=== PATIENT | female | born 1970 | race Two or more races ===

== ENCOUNTER 2016-04-23 17:52 | Emergency (ER) | payer MEDICAID, OTHER ==
[~2016-04-23] VITALS: Ht 165.1 cm; Wt 83.9 kg
[2016-04-23] MEDS ORDERED: SODIUM CHLORIDE 0.9% 500 ML IV ONE (18:06)
[2016-04-23 18:48] LABS: Albumin 4.4 g/dL (3.4-5.0); BUN/Creatinine Ratio 11.4; Calcium 8.5 mg/dL (8.5-10.1)
[2016-04-23 18:50] VITALS: BP 156/83
[2016-04-23 18:51] LABS: Bilirubin, Total 0.5 mg/dL (0.2-1.0); Total Protein 8.7 g/dL (6.4-8.2)
[2016-04-23 18:54] LABS: Basophils # (auto) 0 uL; Basophils % (auto) 0.4 % (0.0-2.0); Eosinophils # (auto) 0.1 uL; Eosinophils % (auto) 1.9 % (0.0-7.0); Hematocrit 42.5 % (36.0-46.0); Hemoglobin 14.4 g/dL (12.2-16.2); Lymphocytes # (auto) 3.1 uL; Lymphocytes % (auto) 40.9 % (10.0-50.0); Mean Corpuscular Hemoglobin 28.8 pg (28.0-32.0); Mean Corpuscular Hgb Conc. 33.8 g/dL (32.0-36.0); Mean Corpuscular Volume 85.1 fL (80.0-100.0); Mean Platelet Volume 8.2 fL (7.4-10.4); Monocytes # (auto) 0.4 uL; Neutrophils # (auto) 3.9 uL; Neutrophils % (auto) 51.8 % (37.0-80.0); Platelet Count (auto) 262 10^3/uL (140-450); Red Cell Distribution Width 13.1 % (11.6-16.0); White Blood Cell 7.5 10^3/uL (4.4-10.8)
[2016-04-23] MEDS ORDERED: POTASSIUM CHL 20 Meq TABLET PO ONE (19:30)
== END 2016-04-23 20:08 | disposition home or self-care (01) ==
LOC: ER 17:57
DX: R53.1 Weakness (principal); F45.8 Other somatoform disorders; E87.6 Hypokalemia; R51 Headache
CPT/HCPCS: 36415; 70450; 71010; 80053; 83735; 84484; 84702; 85025; 93005; 94761; 96360; 99285; J7030

== ENCOUNTER 2019-11-21 14:12 | Inpatient (IN) | payer MEDICAID ==
[~2019-11-21] VITALS: Ht 165.1 cm; Wt 79.8 kg
[2019-11-21] MEDS ORDERED: SODIUM CHLORIDE 0.9% 1,000 ML IVB ONE (15:31)
[2019-11-21] MEDS ORDERED: ASCORBIC ACID 500 MG TAB PO ONE (15:45)
[2019-11-21] MEDS ORDERED: ZINC SULFATE 220mg CAP or TAB PO ONE (15:45)
[2019-11-21] MEDS ORDERED: AZITHROMYCIN 500MG/ 250ML 250 ML IV ONE (15:45)
[2019-11-21] MEDS ORDERED: DexAMETHasone 4 MG TAB PO ONE (15:45)
[2019-11-21 18:03] LABS: Basophils # (auto) 0 10 ^3/uL (0-0.2); Basophils % (auto) 0.4 % (0.0-2.0); Eosinophils # (auto) 0.1 10 ^3/uL (0-0.8); Eosinophils % (auto) 0.8 % (0.0-7.0); Hematocrit 41.9 % (36.0-46.0); Hemoglobin 14.2 g/dL (12.2-16.2); Lymphocytes % (auto) 24.6 % (10.0-50.0); Mean Corpuscular Hemoglobin 28.8 pg (28.0-32.0); Mean Corpuscular Volume 84.6 fL (80.0-100.0); Monocytes # (auto) 0.4 10 ^3/uL (0-1.3); Monocytes % (auto) 4.2 % (0.0-12.0); Neutrophils # (auto) 5.8 10 ^3/uL (1.6-8.6); Platelet Count (auto) 333 10^3/uL (140-450); Red Blood Cells 4.95 10^6/uL (4.0-5.20); Red Cell Distribution Width 12.8 % (11.8-14.3); White Blood Cell 8.3 10^3/uL (4.4-10.8)
[2019-11-21 18:30] LABS: Albumin 4.1 g/dL (3.4-5.0); BUN/Creatinine Ratio 9.6; Calcium 9.2 mg/dL (8.5-10.1); Magnesium 2.3 mg/dL (1.6-2.6); Potassium 3.7 mmol/L (3.5-5.1)
[2019-11-21 18:32] LABS: Bilirubin, Total 0.7 mg/dL (0.2-1.0); INR 1.06 (0.9-1.15); Partial Thromboplastin Time 24.8 sec (23.0-31.2); Total Protein 8.2 g/dL (6.4-8.2)
[2019-11-21] MEDS ORDERED: SODIUM CHLORIDE 0.9% 1,000 ML IV SCH (21:54)
[2019-11-21] MEDS ORDERED: ACETAMINOPHEN 500 MG TAB PO PRN (22:00)
[2019-11-21] MEDS ORDERED: HYDROcodone-ACET 5/325MG TAB PO PRN (22:00)
[2019-11-21] MEDS ORDERED: LORazepam 0.5 MG TAB PO PRN (22:00)
[2019-11-21] MEDS ORDERED: MORPHINE SULF INJ 2 MG/ML SYRINGE 1ML IV PRN (22:00)
[2019-11-21] MEDS ORDERED: TEMAZEPAM 15 MG CAP PO PRN (22:00)
[2019-11-21] MEDS: ALBUTEROL SULF HFA 90MCG INH 200DOSE IN SCH (22:00)
[2019-11-21] MEDS ORDERED: ONDANSETRON HCL 4 MG/2 ML VIAL IV PRN (22:00)
[2019-11-21] MEDS ORDERED: DOCUSATE SOD 100 MG CAP PO PRN (22:00)
[2019-11-21] MEDS: DOXYCYCLINE 100 MG TAB/CAP PO SCH (22:52)
[2019-11-21 23:21] LABS: Urine Bacteria FEW /hpf (None Seen); Urine Blood Negative /uL (Negative); Urine Specific Gravity 1.009 (1.001-1.035); Urine WBC 11 /hpf (0 - 5)
[2019-11-22] VITALS (9 sets, daily range): BP systolic 128–149; BP diastolic 73–85
[2019-11-22 05:43] LABS: Basophils # (auto) 0 10 ^3/uL (0-0.2); Eosinophils # (auto) 0 10 ^3/uL (0-0.8); Hematocrit 38.9 % (36.0-46.0); Hemoglobin 13.1 g/dL (12.2-16.2); Lymphocytes # (auto) 0.9 10 ^3/uL (0.4-5.4); Mean Corpuscular Hemoglobin 28.4 pg (28.0-32.0); Mean Corpuscular Hgb Conc. 33.7 g/dL (32.0-36.0); Mean Corpuscular Volume 84.3 fL (80.0-100.0); Monocytes # (auto) 0.1 10 ^3/uL (0-1.3); Monocytes % (auto) 0.8 % (0.0-12.0); Neutrophils # (auto) 5.3 10 ^3/uL (1.6-8.6); Neutrophils % (auto) 84.2 % (37.0-80.0); Platelet Count (auto) 308 10^3/uL (140-450); Red Blood Cells 4.61 10^6/uL (4.0-5.20); Red Cell Distribution Width 12.9 % (11.8-14.3); White Blood Cell 6.3 10^3/uL (4.4-10.8)
[2019-11-22] MEDS: ALBUTEROL SULF HFA 90MCG INH 200DOSE IN SCH ×2 (06:00→06:27)
[2019-11-22 06:02] LABS: Potassium 3.7 mmol/L (3.5-5.1)
[2019-11-22 06:11] LABS: Albumin 3.6 g/dL (3.4-5.0); BUN/Creatinine Ratio 11.5; Bilirubin, Total 0.6 mg/dL (0.2-1.0); Calcium 8.6 mg/dL (8.5-10.1); Total Protein 7.5 g/dL (6.4-8.2)
[2019-11-22 06:40] LABS: Cholesterol 186 mg/dL (< 200); HDL Cholesterol 30 mg/dL (40-59); LDL Cholesterol 129 mg/dL (< 100); Triglycerides 144 mg/dL (< 150)
[2019-11-22] MEDS: ZINC SULFATE 220mg CAP or TAB PO SCH (08:48)
[2019-11-22] MEDS: ASCORBIC ACID 1,000 MG TAB PO SCH (08:48)
[2019-11-22] MEDS: DOXYCYCLINE 100 MG TAB/CAP PO SCH ×2 (09:00→20:50)
[2019-11-22] MEDS: ENOXAPARIN SOD 40 MG/0.4 ML SYRINGE SC SCH (09:01)
[2019-11-22] MEDS ORDERED: DexAMETHasone SOD PHOS 10MG/1ML VIAL INJ IV ONE (14:16)
[2019-11-22] MEDS ORDERED: POTASSIUM CHL 10 Meq TABLET PO ONE (14:30)
[2019-11-22] MEDS ORDERED: FUROSEMIDE 20 MG TAB PO ONE (14:30)
[2019-11-22 16:06] LABS: CRP High Sensitivity 0.14 mg/dL (< 0.3)
[2019-11-22] MEDS ORDERED: ALBUTEROL SULF HFA 90MCG INH 200DOSE IN SCH (22:00)
[2019-11-22] MEDS ORDERED: BUDESONIDE (INHALATION) 180 MCG IH IN SCH (22:00)
[2019-11-23 05:00] VITALS: BP 115/63
[2019-11-23 09:00] VITALS: BP 115/72
[2019-11-23] MEDS: DOXYCYCLINE 100 MG TAB/CAP PO SCH (09:29)
[2019-11-23] MEDS: ENOXAPARIN SOD 40 MG/0.4 ML SYRINGE SC SCH (09:30)
[2019-11-23] MEDS: ASCORBIC ACID 1,000 MG TAB PO SCH (09:30)
[2019-11-23] MEDS: ZINC SULFATE 220mg CAP or TAB PO SCH (09:30)
[2019-11-23] MEDS ORDERED: DexAMETHasone SOD PHOS 10MG/1ML VIAL INJ IV SCH (10:00)
[2019-11-23] MEDS ORDERED: DOXY-286 PO (11:00)
[2019-11-23] MEDS ORDERED: ZINC220T6 PO (11:00)
[2019-11-23] MEDS ORDERED: METH4PAK PO (11:00)
[2019-11-23] MEDS ORDERED: ASCO10003 PO (11:00)
[2019-11-23 12:42] VITALS: BP 135/75
[2019-11-23 13:07] VITALS: BP 135/75
== END 2019-11-23 14:30 | disposition home or self-care (01) | DRG 139 ==
LOC: ER 14:12 → OVERFLOW 14:13 → EAST 23:50 → TELE-EAST 11-22 06:50 → TELE-WESTW 11-22 08:21
PROVIDERS: ADMIT Hospitalist; ATTEND Internal Medicine
DX: J12.89 Other viral pneumonia (principal); E66.9 Obesity, unspecified; I10 Essential (primary) hypertension; E78.5 Hyperlipidemia, unspecified; Z68.29 Body mass index [BMI] 29.0-29.9, adult; Z20.828 Contact with and (suspected) exposure to other viral communicable diseases; B94.8 Sequelae of other specified infectious and parasitic diseases
CPT/HCPCS: 36415; 71045; 80053; 80061; 81001; 82728; 83605; 83615; 83735; 85025; 85610; 85730; 86141; 87040; 93005; 96361; 96365; G0378; J1100

== ENCOUNTER 2023-01-14 15:44 | Emergency (ER) | payer MEDICAID ==
[~2023-01-14] VITALS: Ht 170.2 cm; Wt 84.0 kg
[~2023-01-14 15:44] MED LIST: ASCO10003 PO; DOXY-286 PO; METH4PAK PO; ZINC220T6 PO
[2023-01-14 16:20] VITALS: PULSE 69; RESP 18; O2SAT 98
[2023-01-14 16:35] LABS: Basophils # (auto) 0 10 ^3/uL (0-0.2); Basophils % (auto) 0.5 % (0.0-2.0); Eosinophils # (auto) 0.1 10 ^3/uL (0-0.8); Eosinophils % (auto) 1.2 % (0.0-7.0); Hematocrit 41.5 % (36.0-46.0); Hemoglobin 14.3 g/dL (12.2-16.2); Lymphocytes # (auto) 2.7 10 ^3/uL (0.4-5.4); Lymphocytes % (auto) 34.9 % (10.0-50.0); Mean Corpuscular Hemoglobin 28.9 pg (28.0-32.0); Mean Corpuscular Hgb Conc. 34.6 g/dL (32.0-36.0); Mean Corpuscular Volume 83.5 fL (80.0-100.0); Monocytes # (auto) 0.3 10 ^3/uL (0-1.3); Monocytes % (auto) 3.9 % (0.0-12.0); Neutrophils # (auto) 4.7 10 ^3/uL (1.6-8.6); Neutrophils % (auto) 59.5 % (37.0-80.0); Nucleated Red Blood Cells % 0.1 %; Red Blood Cells 4.97 10^6/uL (4.0-5.20); Red Cell Distribution Width 13.3 % (11.8-14.3); White Blood Cell 7.8 10^3/uL (4.4-10.8)
[2023-01-14 17:03] LABS: Alanine Aminotransferase 19 U/L (7-40); Alkaline Phosphatase 97 U/L (46-116); Anion Gap 8 (5-15); Aspartate Aminotransferase 11 U/L (13-40); BUN/Creatinine Ratio 12.2 (10.0-20.0); Blood Urea Nitrogen 9 mg/dL (9-23); Calcium 9.5 mg/dL (8.7-10.4); Carbon Dioxide 27 mmol/L (20-30); Chloride 104 mmol/L (98-107); Glucose 97 mg/dL (74-106); Potassium 3.4 mmol/L (3.5-5.1); Sodium 139 mmol/L (136-145)
[2023-01-14 17:04] LABS: Bilirubin, Total 0.7 mg/dL (0.2-1.0)
[2023-01-14 18:51] LABS: Urine Bacteria NONE SEEN /hpf (None Seen); Urine Blood Negative /uL (Negative); Urine Clarity Clear (Clear); Urine Color Colorless (Yellow); Urine Protein, UAD TRACE (Negative); Urine Specific Gravity 1.008 (1.001-1.035); Urine Urobilinogen Normal (Negative); Urine WBC <1 /hpf (0 - 5)
[2023-01-14 19:35] VITALS: PULSE 81; RESP 18; O2SAT 97
[2023-01-14] MEDS ORDERED: SODIUM CHLORIDE 0.9% 1,000 ML IV ONE (19:45)
[2023-01-14] MEDS ORDERED: METOCLOPRAMIDE HCL 5MG/ml INJ 2ml VIAL IV ONE (19:45)
[2023-01-14 22:31] VITALS: BP 126/69; PULSE 63; RESP 13; TEMP 97.9; O2SAT 95
== END 2023-01-14 22:39 | disposition home or self-care (01) ==
LOC: EDBD 15:44 → ER 15:44
DX: R51.9 Headache, unspecified (principal); Z79.2 Long term (current) use of antibiotics; Z79.899 Other long term (current) drug therapy
CPT/HCPCS: 36415; 70450; 80053; 81001; 83735; 84484; 85025; 93005; 96361; 96374; 99285; J2765; J7030